=== PATIENT | female | born 1980 | race Caucasian/White ===

== ENCOUNTER 2017-02-26 21:59 | Emergency (ER) | payer OTHER ==
[~2017-02-26] VITALS: Ht 160 cm; Wt 97.5 kg
[~2017-02-26 21:59] MED LIST: ABILIFY 2 MG2 M1 PO; ABILIFY 5 MG TAB5 M1 PO; ACETAMINOPHEN-1 EAC1 PO; ADVAIR 500-501 EACH INH; AMBIEN 10 MG TA10 MG PO; AMBIEN 5 MG TABL5 M1 PO; AMOXICILLIN 50500 M1 PO; AMOXICILLIN875 MG PO; APAP/CODEINE ELI5 M1 OR; APAP500; APAP500 PO; BACTRIM DS TAB1 EACH PO; BENTYL 20 MG TA20 M1 PO; BENTYL10 MG PO; CALCIUM 500+D1 EAC2 PO; CARAFATE 1 GM TA1 G1 PO; CELEBREX 200 M200 MG PO; CELEBREX50 MG PO; CIPROFLOXACIN500 M1 PO; CIPROFLOXACIN500 M3 PO; CITRATE OF MAG296 ML PO; CLARINEX5 MG PO; CLEOCIN HCL150 MG PO; CLEOCIN HCL300 MG PO; COLACE 100 MG100 MG PO; COLACE100 MG PO; CYCLOBENZAPRINE5 MG PO; CYMBALTA20 MG; CYMBALTA30 MG PO; DILAUDID2 M1 PO; ESTRACE2 M3 PO; ESTRACE2 MG PO; ESTRADIOL 2 MG GT; FLAGYL500 MG PO; FLEXERIL PO; GLUCOPHAGE500 MG PO; HTN MED PO; HYDROCODON-ACE1 EAC5 PO; HYDROCODON-ACE1 EAC8 PO; HYDROCODONE-AP1 EAC6 PO; LOMOTIL TABLET1 EACH PO; MEDROL DOSPAK21 TAB PO; MEDROLDOSEPACK PO; METFORMIN HCL500 M2 PO; MS CONTIN 30 MG30 M1; MULTI VITAMIN1 EACH PO; MULTIVIT &0.5 MG/1 M; NAPROSYN500 MG PO; NEURONTIN 300M300 M2 PO; NORCO 5-325 TA1 EACH PO; NORFLEX100 MG PO; NYSTATIN 100,0015 G1; NYSTATIN-TRIAMC15 G1 TP; NYSTATIN15 GM TP; OMEPRAZOLE 20 M20 M1 PO; OXYCONTIN10 M1 PO; PENICILLIN V P500 MG PO; PENICILLIN VK500 MG PO; PEPCID40 MG PO; PERCOCET 10-321 EACH PO; PERCOCET 10-651 EACH PO; PERCOCET 5-3251 EACH PO; PERCOCET 7.5-31 EACH PO; PERIDEX 0.12%473 M1 SSP; PHENERGAN 25 MG25 M1 PO; PRAZOSIN 1 MG CA1 M1 PO; PREDNISOLONE PO; PREMARIN; PRILOSEC40 MG PO; PROAIR HFA8.5 GM IH; PROCTOFOAM-HC F10 G1 RE; PROTONIX40 M2 PO; PROZOSIN PO; RECTICARE30 GM; REGLAN 10 MG TA10 MG PO; RINGWORM14.2 GM TP; VALIUM2 MG; VALIUM5 MG PO; VICODIN 5-5001 EACH PO; VITAMIN E100 UNIT PO; XANAX 0.5 MG0.5 M1; XANAX 0.5 MG0.5 M1 PO; ZANAFLEX4 MG PO; ZOFRAN ODT4 MG PO; ZOLOFT100 MG PO; ZOLPIDEM TART12.5 M1 PO; ZPAK PO; [UNRECOGNIZED DRUG - OTHER] GT; [UNRECOGNIZED DRUG - REMARK] PO
[2017-02-26] MEDS ORDERED: ROSUVASTATIN CA40 MG PO (22:06)
[2017-02-26] MEDS ORDERED: DOXYCYCLINE HY100 M3 PO (22:06)
[2017-02-26] MEDS ORDERED: HYDROCODONE-AP1 EAC6 PO (22:06)
[2017-02-26] MEDS ORDERED: TOPROL XL25 MG PO (22:06)
[2017-02-26] MEDS ORDERED: ROBAXIN 750 MG750 M1 PO (23:44)
[2017-02-27 00:31] VITALS: BP 145/71
== END 2017-02-27 00:35 | disposition home or self-care (01) ==
LOC: ER 21:59
DX: M25.552 Pain in left hip (principal); I10 Essential (primary) hypertension; E11.9 Type 2 diabetes mellitus without complications; F17.210 Nicotine dependence, cigarettes, uncomplicated; Z90.710 Acquired absence of both cervix and uterus; Z90.49 Acquired absence of other specified parts of digestive tract; Z98.890 Other specified postprocedural states; Z88.1 Allergy status to other antibiotic agents; Z91.041 Radiographic dye allergy status; Z88.5 Allergy status to narcotic agent; Z88.8 Allergy status to other drugs, medicaments and biological substances; Z91.018 Allergy to other foods; Z91.09 Other allergy status, other than to drugs and biological substances

== ENCOUNTER 2018-10-30 14:29 | Emergency (ER) | payer OTHER ==
[~2018-10-30] VITALS: Ht 157.5 cm; Wt 90.7 kg
[~2018-10-30 14:29] MED LIST changes: +DOXYCYCLINE HY100 M3 PO; +ESTRADIOL 1 MG T1 M1 PO; +METFORMIN HCL500 MG PO; +PENICILLIN VK500 M1 PO; +PRILOSEC 20 MG20 MG PO; +ROBAXIN 750 MG750 M1 PO; +ROSUVASTATIN CA40 MG PO; +TOPROL XL25 MG PO; +TRAMADOL 50 MG50 MG PO
[2018-10-30] MEDS ORDERED: FLEXERIL PO (14:43)
[2018-10-30] MEDS ORDERED: NORCO 5-325 TA1 EACH PO (15:36)
[2018-10-30 15:41] VITALS: BP 141/90
== END 2018-10-30 15:42 | disposition home or self-care (01) ==
LOC: ER 14:29
DX: S30.0XXA Contusion of lower back and pelvis, initial encounter (principal); F17.210 Nicotine dependence, cigarettes, uncomplicated; I10 Essential (primary) hypertension; E11.9 Type 2 diabetes mellitus without complications; K21.9 Gastro-esophageal reflux disease without esophagitis; Z88.1 Allergy status to other antibiotic agents; Z88.8 Allergy status to other drugs, medicaments and biological substances; Z91.018 Allergy to other foods; Z91.041 Radiographic dye allergy status; Z88.6 Allergy status to analgesic agent; Z91.048 Other nonmedicinal substance allergy status; Z90.49 Acquired absence of other specified parts of digestive tract; Z90.710 Acquired absence of both cervix and uterus; Z98.890 Other specified postprocedural states; W01.0XXA Fall on same level from slipping, tripping and stumbling without subsequent striking against object, initial encounter; Y92.89 Other specified places as the place of occurrence of the external cause; Y93.89 Activity, other specified; Y99.8 Other external cause status

== ENCOUNTER 2018-12-19 22:02 | Emergency (ER) | payer OTHER ==
[~2018-12-19] VITALS: Ht 157.5 cm; Wt 93.0 kg
[2018-12-19] MEDS ORDERED: NORCO 5-325 TA1 EACH PO (22:48)
[2018-12-19] MEDS ORDERED: CLEOCIN HCL150 MG PO (22:48)
[2018-12-19 23:31] VITALS: BP 133/89
== END 2018-12-19 23:32 | disposition home or self-care (01) ==
LOC: ER 22:02
DX: K08.89 Other specified disorders of teeth and supporting structures (principal); E11.9 Type 2 diabetes mellitus without complications; I10 Essential (primary) hypertension; Z90.49 Acquired absence of other specified parts of digestive tract; Z90.710 Acquired absence of both cervix and uterus; F17.210 Nicotine dependence, cigarettes, uncomplicated; Z88.1 Allergy status to other antibiotic agents; Z88.6 Allergy status to analgesic agent; Z88.5 Allergy status to narcotic agent; Z88.8 Allergy status to other drugs, medicaments and biological substances; Z91.041 Radiographic dye allergy status

== ENCOUNTER 2019-02-05 06:39 | Emergency (ER) | payer OTHER ==
[~2019-02-05] VITALS: Ht 157.5 cm; Wt 95.3 kg
[2019-02-05] MEDS ORDERED: CLEOCIN HCL150 MG PO (07:18)
[2019-02-05 07:30] VITALS: BP 116/63
== END 2019-02-05 07:42 | disposition home or self-care (01) ==
LOC: ER 06:39
DX: K08.89 Other specified disorders of teeth and supporting structures (principal); E11.9 Type 2 diabetes mellitus without complications; I10 Essential (primary) hypertension; F17.210 Nicotine dependence, cigarettes, uncomplicated; Z90.49 Acquired absence of other specified parts of digestive tract; Z90.710 Acquired absence of both cervix and uterus; Z88.1 Allergy status to other antibiotic agents; Z91.041 Radiographic dye allergy status; Z88.6 Allergy status to analgesic agent; Z88.8 Allergy status to other drugs, medicaments and biological substances; Z91.018 Allergy to other foods

== ENCOUNTER 2019-02-15 19:33 | Emergency (ER) | payer OTHER ==
[~2019-02-15] VITALS: Ht 157.5 cm; Wt 93.0 kg
[2019-02-15 21:07] LABS: ABSOLUTE NEUTROPHILS 5.4 thou/uL (1.4-8.2); BASOPHILS 0.9 % (0.0-2.0); EOSINOPHILS 1.1 % (0.0-3.0); HEMATOCRIT 39.7 % (37.0-47.0); HEMOGLOBIN 13.2 gm/dL (12.0-15.0); LYMPHOCYTES 38.3 % (24.0-44.0); MCH 28.8 pg (26.0-34.0); MCHC 33.3 g/dL (28.0-37.0); MCV 86.7 fL (80.0-100.0); MONOCYTES 6.7 % (1.0-8.0); PLATELET COUNT 358 thou/uL (150-400); RBC 4.58 mil/uL (4.20-5.00); RDW 14.9 % (10.5-14.5); WBC 10.2 thou/uL (4.0-11.0)
[2019-02-15 21:12] LABS: ANION GAP 7 mmol/L (7-16); BUN 15 mg/dL (7-18); CALCIUM 9.7 mg/dL (8.5-10.1); CHLORIDE 106 mmol/L (98-107); CO2 30 mmol/L (21-32); CREATININE 0.9 mg/dL (0.6-1.0); GLUCOSE 99 mg/dL (74-106); POTASSIUM 3.6 mmol/L (3.5-5.1); SODIUM 143 mmol/L (136-145)
[2019-02-15 21:20] LABS: ALBUMIN 3.7 g/dL (3.4-5.0); DIRECT BILIRUBIN < 0.1 mg/dL (<0.1-0.3); LIPASE 209 U/L (73-393); SGOT 23 U/L (15-37); SGPT 23 U/L (30-65); TOTAL BILIRUBIN 0.2 mg/dL (<0.1-1.0); TOTAL PROTEIN 7.5 g/dL (6.4-8.2)
[2019-02-15] MEDS ORDERED: ZOFRAN ODT4 MG PO (23:33)
[2019-02-15] MEDS ORDERED: TORADOL 10 MG T10 MG PO (23:33)
[2019-02-15] MEDS ORDERED: BENTYL 20 MG TA20 M1 PO (23:33)
[2019-02-15 23:40] VITALS: BP 124/75
== END 2019-02-16 00:06 | disposition home or self-care (01) ==
LOC: ER 19:33
PROVIDERS: Emergency Medicine
DX: R10.30 Lower abdominal pain, unspecified (principal); R11.2 Nausea with vomiting, unspecified; F17.210 Nicotine dependence, cigarettes, uncomplicated; E11.9 Type 2 diabetes mellitus without complications; I10 Essential (primary) hypertension; Z88.1 Allergy status to other antibiotic agents; Z88.8 Allergy status to other drugs, medicaments and biological substances; Z91.041 Radiographic dye allergy status; Z88.6 Allergy status to analgesic agent; Z91.018 Allergy to other foods; Z90.49 Acquired absence of other specified parts of digestive tract; Z90.710 Acquired absence of both cervix and uterus

== ENCOUNTER 2019-03-14 10:41 | Emergency (ER) | payer OTHER ==
[~2019-03-14] VITALS: Ht 157.5 cm; Wt 93.0 kg
[~2019-03-14 10:41] MED LIST changes: +TORADOL 10 MG T10 MG PO
[2019-03-14 10:48] VITALS: BP 159/100
[2019-03-14] MEDS ORDERED: TORADOL 10 MG T10 MG PO (11:34)
[2019-03-14] MEDS ORDERED: NORCO 5-325 TA1 EACH PO (11:51)
== END 2019-03-14 11:42 | disposition home or self-care (01) ==
LOC: ER 10:41
DX: S46.911A Strain of unspecified muscle, fascia and tendon at shoulder and upper arm level, right arm, initial encounter (principal); S60.211A Contusion of right wrist, initial encounter; E11.9 Type 2 diabetes mellitus without complications; I10 Essential (primary) hypertension; F17.210 Nicotine dependence, cigarettes, uncomplicated; Z90.49 Acquired absence of other specified parts of digestive tract; Z90.710 Acquired absence of both cervix and uterus; Z88.1 Allergy status to other antibiotic agents; Z88.5 Allergy status to narcotic agent; Z88.6 Allergy status to analgesic agent; Z88.8 Allergy status to other drugs, medicaments and biological substances; Z91.041 Radiographic dye allergy status; W01.198A Fall on same level from slipping, tripping and stumbling with subsequent striking against other object, initial encounter; Y93.89 Activity, other specified; Y92.89 Other specified places as the place of occurrence of the external cause; Y99.8 Other external cause status

== ENCOUNTER 2019-04-19 16:45 | Emergency (ER) | payer OTHER ==
[~2019-04-19] VITALS: Ht 157.5 cm; Wt 88.5 kg
[2019-04-19] MEDS ORDERED: MOBIC15 MG PO (17:48)
[2019-04-19 18:39] VITALS: BP 140/81
== END 2019-04-19 18:39 | disposition home or self-care (01) ==
LOC: ER 16:45
DX: S93.401A Sprain of unspecified ligament of right ankle, initial encounter (principal); E11.9 Type 2 diabetes mellitus without complications; I10 Essential (primary) hypertension; F17.210 Nicotine dependence, cigarettes, uncomplicated; Z90.49 Acquired absence of other specified parts of digestive tract; Z90.710 Acquired absence of both cervix and uterus; Z88.1 Allergy status to other antibiotic agents; Z88.6 Allergy status to analgesic agent; Z88.5 Allergy status to narcotic agent; Z88.8 Allergy status to other drugs, medicaments and biological substances; W18.30XA Fall on same level, unspecified, initial encounter; Y93.89 Activity, other specified; Y92.89 Other specified places as the place of occurrence of the external cause; Y99.8 Other external cause status

== ENCOUNTER 2019-06-26 21:35 | Emergency (ER) | payer OTHER ==
[~2019-06-26] VITALS: Ht 157.5 cm; Wt 88.5 kg
[~2019-06-26 21:35] MED LIST changes: +MOBIC15 MG PO
[2019-06-26] MEDS ORDERED: CLEOCIN HCL150 MG PO (21:39)
[2019-06-26 21:50] VITALS: BP 153/101
[2019-06-26] MEDS ORDERED: NORCO 7.5-3251 EACH PO (22:18)
[2019-06-26] MEDS ORDERED: AMOXICILLIN 50500 M1 PO (22:18)
[2019-06-26] MEDS ORDERED: NICOTINE TRANSD21 M1 TRANSDERM (22:18)
== END 2019-06-26 22:24 | disposition home or self-care (01) ==
LOC: ER 21:35
DX: K08.89 Other specified disorders of teeth and supporting structures (principal); H92.01 Otalgia, right ear; E11.9 Type 2 diabetes mellitus without complications; I10 Essential (primary) hypertension; F17.210 Nicotine dependence, cigarettes, uncomplicated; Z90.49 Acquired absence of other specified parts of digestive tract; Z90.710 Acquired absence of both cervix and uterus; Z88.1 Allergy status to other antibiotic agents; Z91.018 Allergy to other foods; Z91.041 Radiographic dye allergy status; Z88.6 Allergy status to analgesic agent; Z88.8 Allergy status to other drugs, medicaments and biological substances; Z91.048 Other nonmedicinal substance allergy status

== ENCOUNTER 2019-09-09 15:13 | Emergency (ER) | payer OTHER ==
[~2019-09-09] VITALS: Ht 160 cm; Wt 90.3 kg
[~2019-09-09 15:13] MED LIST changes: +NICOTINE TRANSD21 M1 TRANSDERM; +NORCO 7.5-3251 EACH PO
[2019-09-09 15:39] LABS: URINE BLOOD NEGATIVE (Negative); URINE CLARITY CLEAR; URINE COLOR YELLOW; URINE GLUCOSE-RANDOM* NEGATIVE (Negative); URINE KETONES NEGATIVE (Negative); URINE LEUKOCYTES-REFLEX NEGATIVE (Negative); URINE NITRITE-REFLEX NEGATIVE (Negative); URINE PROTEIN (DIPSTICK) NEGATIVE (Negative); URINE SPECIFIC GRAVITY >= 1.030 (1.005-1.035); URINE UROBILINOGEN 0.2 E.U./dl (0.2-1.0)
[2019-09-09 15:42] LABS: ICTOTEST (BILI CONFIRMATORY) Negative (Negative); URINE BILIRUBIN NEGATIVE (Negative)
[2019-09-09 15:53] LABS: ABSOLUTE NEUTROPHILS 7.7 thou/uL (1.4-8.2); BASOPHILS 1.3 % (0.0-2.0); EOSINOPHILS 1.2 % (0.0-3.0); HEMATOCRIT 43.5 % (37.0-47.0); HEMOGLOBIN 14.6 gm/dL (12.0-15.0); LYMPHOCYTES 29.3 % (24.0-44.0); MCH 29.2 pg (26.0-34.0); MCHC 33.5 g/dL (28.0-37.0); MCV 87.2 fL (80.0-100.0); MONOCYTES 6.1 % (1.0-8.0); PLATELET COUNT 345 thou/uL (150-400); POLYS 62.1 % (36.0-66.0); RBC 4.99 mil/uL (4.20-5.00); RDW 14.1 % (10.5-14.5); WBC 12.3 thou/uL (4.0-11.0)
[2019-09-09 16:03] LABS: ANION GAP 11 mmol/L (7-16); BUN 12 mg/dL (7-18); CALCIUM 9.3 mg/dL (8.5-10.1); CHLORIDE 100 mmol/L (98-107); CO2 26 mmol/L (21-32); GLUCOSE 119 mg/dL (74-106); POTASSIUM 3.7 mmol/L (3.5-5.1); SODIUM 137 mmol/L (136-145)
[2019-09-09 16:12] LABS: TROPONIN-I <0.06 ng/mL (<0.06)
[2019-09-09 17:26] LABS: AMP/METHAMP Negative (Negative); BARBITURATES Negative (Negative); BENZODIAZEPINES Negative (Negative); COCAINE Negative (Negative); METHADONE POSITIVE (Negative); OPIATES Negative (Negative); PCP Negative (Negative)
[2019-09-09 18:19] VITALS: BP 158/80
--- NOTE | 2019-09-10 12:27 | EKG ---
[address] [place] [address] ELECTROCARDIOGRAM REPORT Name: AMAYA GARZA Room #: [facility]#: [id number] Admission: 09/09/19 Attend Phys: Discharge: 09/09/19 Date of : 84 Report #: [id number] THIS REPORT FOR: //name// [facility] ED Test Date: 2019-09-09 Test Time: 15:39:43 Pat Name: AMAYA GARZA Department: Room: Gender: F [employer]eng[employer]ving Printer: Naveed GUERRERO : 1980 Requested By: Anand Simental Order Number: [id number] MD: Geovani Alfonso Measurements Intervals Arrey Rate: 122 P: 25 [place]: 158 QRS: -1 QRSD: 80 T: 44 QT: 300 QTc: 428 Interpretive Statements Sinus tachycardia Poor R-wave progression Compared to ECG 05/18/2016 18:32:14 Sinus rhythm no longer present Electronically Signed On 09-10-2019 12:27:29 HELICOPTER PILOT by Geovani Alfonso [email or web address] <ELECTRONICALLY SIGNED> By: Geovani Alfonso MD 09/10/19 1227 1539 1539 Geovani Alfonso MD /[email or web address]
== END 2019-09-09 18:22 | disposition home or self-care (01) ==
LOC: ER 15:13
PROVIDERS: Emergency Medicine
DX: N64.4 Mastodynia (principal); I10 Essential (primary) hypertension; E11.9 Type 2 diabetes mellitus without complications; E66.9 Obesity, unspecified; F17.210 Nicotine dependence, cigarettes, uncomplicated; Z68.35 Body mass index [BMI] 35.0-35.9, adult; Z90.49 Acquired absence of other specified parts of digestive tract; Z90.710 Acquired absence of both cervix and uterus; Z91.018 Allergy to other foods; Z91.041 Radiographic dye allergy status; Z91.048 Other nonmedicinal substance allergy status; Z88.1 Allergy status to other antibiotic agents; Z88.6 Allergy status to analgesic agent; Z88.8 Allergy status to other drugs, medicaments and biological substances

== ENCOUNTER 2019-11-14 06:54 | Emergency (ER) | payer OTHER ==
[~2019-11-14] VITALS: Ht 157.5 cm; Wt 83.9 kg
[2019-11-14] MEDS ORDERED: NEURONTIN 300300 M1 PO (07:00)
[2019-11-14] MEDS ORDERED: OMEPRAZOLE 20 M20 M1 PO (07:00)
[2019-11-14] MEDS ORDERED: METFORMIN HCL500 M1 PO (07:00)
[2019-11-14] MEDS ORDERED: CYCLOBENZAPRINE10 MG PO (07:01)
[2019-11-14] MEDS ORDERED: DULOXETINE HCL60 MG PO (07:01)
[2019-11-14] MEDS ORDERED: TORADOL 10 MG T10 MG PO ×2 (08:35→09:13)
[2019-11-14] MEDS ORDERED: NORFLEX100 MG PO ×2 (08:35→09:13)
[2019-11-14] MEDS ORDERED: NORCO 5-325 TA1 EAC1 PO ×3 (08:35→09:14)
[2019-11-14 08:41] VITALS: BP 109/57
== END 2019-11-14 09:30 | disposition home or self-care (01) ==
LOC: ER 06:54
DX: S86.812A Strain of other muscle(s) and tendon(s) at lower leg level, left leg, initial encounter (principal); S50.12XA Contusion of left forearm, initial encounter; S40.012A Contusion of left shoulder, initial encounter; I10 Essential (primary) hypertension; E11.9 Type 2 diabetes mellitus without complications; F17.210 Nicotine dependence, cigarettes, uncomplicated; Z90.49 Acquired absence of other specified parts of digestive tract; Z90.710 Acquired absence of both cervix and uterus; Z91.018 Allergy to other foods; Z91.041 Radiographic dye allergy status; Z91.048 Other nonmedicinal substance allergy status; Z88.1 Allergy status to other antibiotic agents; Z88.6 Allergy status to analgesic agent; Z88.8 Allergy status to other drugs, medicaments and biological substances; W01.0XXA Fall on same level from slipping, tripping and stumbling without subsequent striking against object, initial encounter; Y93.89 Activity, other specified; Y92.89 Other specified places as the place of occurrence of the external cause; Y99.8 Other external cause status

== ENCOUNTER 2020-01-15 21:37 | Emergency (ER) | payer OTHER ==
[~2020-01-15] VITALS: Ht 157.5 cm; Wt 97.5 kg
[~2020-01-15 21:37] MED LIST changes: +CYCLOBENZAPRINE10 MG PO; +DULOXETINE HCL60 MG PO; +METFORMIN HCL500 M1 PO; +NEURONTIN 300300 M1 PO; +NORCO 5-325 TA1 EAC1 PO
[2020-01-15] MEDS ORDERED: PREDNISONE 20 M20 M1 PO (22:42)
[2020-01-15] MEDS ORDERED: PROAIR HFA8.5 GM INH (22:42)
[2020-01-15] MEDS ORDERED: PROMETH-CODEIN 65 ML PO (22:42)
[2020-01-15 22:55] VITALS: BP 111/67
== END 2020-01-15 22:50 | disposition home or self-care (01) ==
LOC: ER 21:37
DX: J40 Bronchitis, not specified as acute or chronic (principal); E11.9 Type 2 diabetes mellitus without complications; I10 Essential (primary) hypertension; F17.210 Nicotine dependence, cigarettes, uncomplicated; Z79.899 Other long term (current) drug therapy; Z88.1 Allergy status to other antibiotic agents; Z88.6 Allergy status to analgesic agent; Z88.8 Allergy status to other drugs, medicaments and biological substances

== ENCOUNTER 2020-03-19 05:35 | Emergency (ER) | payer OTHER ==
[~2020-03-19] VITALS: Ht 157.5 cm; Wt 90.3 kg
[~2020-03-19 05:35] MED LIST changes: +PREDNISONE 20 M20 M1 PO; +PROAIR HFA8.5 GM INH; +PROMETH-CODEIN 65 ML PO
[2020-03-19] MEDS ORDERED: BENTYL 10 MG CA10 M1 PO (06:11)
[2020-03-19] MEDS ORDERED: NORCO 10-325 T1 EACH PO (06:12)
[2020-03-19 06:27] VITALS: BP 133/69
[2020-03-19] MEDS ORDERED: LIDOCAINE VISC100 ML TOP (06:45)
[2020-03-19] MEDS ORDERED: AUGMENTIN 875-1 EACH PO (06:45)
[2020-03-19] MEDS ORDERED: CLEOCIN HCL150 MG PO (06:45)
[2020-03-19] MEDS ORDERED: NORCO 5-325 TA1 EAC1 PO (06:46)
== END 2020-03-19 07:02 | disposition home or self-care (01) ==
LOC: ER 05:35
DX: N75.0 Cyst of Bartholin's gland (principal); E11.9 Type 2 diabetes mellitus without complications; I10 Essential (primary) hypertension; F17.210 Nicotine dependence, cigarettes, uncomplicated; Z79.899 Other long term (current) drug therapy; Z88.1 Allergy status to other antibiotic agents; Z88.8 Allergy status to other drugs, medicaments and biological substances; Z91.041 Radiographic dye allergy status; Z91.018 Allergy to other foods; Z90.710 Acquired absence of both cervix and uterus; Z90.49 Acquired absence of other specified parts of digestive tract; Z98.890 Other specified postprocedural states

== ENCOUNTER 2020-04-17 17:32 | Emergency (ER) | payer OTHER ==
[~2020-04-17] VITALS: Ht 157.5 cm; Wt 90.3 kg
[~2020-04-17 17:32] MED LIST changes: +AUGMENTIN 875-1 EACH PO; +BENTYL 10 MG CA10 M1 PO; +LIDOCAINE VISC100 ML TOP; +NORCO 10-325 T1 EACH PO
[2020-04-17 17:42] VITALS: BP 147/90
[2020-04-17] MEDS ORDERED: NORCO 5-325 TA1 EAC1 PO (18:10)
== END 2020-04-17 18:26 | disposition home or self-care (01) ==
LOC: ER 17:32
DX: M25.532 Pain in left wrist (principal); R51 Headache; E11.9 Type 2 diabetes mellitus without complications; I10 Essential (primary) hypertension; F17.210 Nicotine dependence, cigarettes, uncomplicated; Z90.49 Acquired absence of other specified parts of digestive tract; Z90.710 Acquired absence of both cervix and uterus; Z98.890 Other specified postprocedural states; Z79.899 Other long term (current) drug therapy; Z88.1 Allergy status to other antibiotic agents; Z91.018 Allergy to other foods; Z91.041 Radiographic dye allergy status; Z88.8 Allergy status to other drugs, medicaments and biological substances

== ENCOUNTER 2020-06-01 14:34 | Emergency (ER) | payer OTHER ==
[~2020-06-01] VITALS: Ht 172.7 cm; Wt 88.5 kg
[2020-06-01] MEDS ORDERED: TORADOL 10 MG T10 MG PO (16:43)
[2020-06-01 17:00] VITALS: BP 126/82
== END 2020-06-01 17:08 | disposition home or self-care (01) ==
LOC: ER 14:34
DX: M54.42 Lumbago with sciatica, left side (principal); E11.9 Type 2 diabetes mellitus without complications; I10 Essential (primary) hypertension; F17.210 Nicotine dependence, cigarettes, uncomplicated; Z90.49 Acquired absence of other specified parts of digestive tract; Z90.711 Acquired absence of uterus with remaining cervical stump; Z79.899 Other long term (current) drug therapy; Z88.1 Allergy status to other antibiotic agents; Z88.8 Allergy status to other drugs, medicaments and biological substances; Z91.041 Radiographic dye allergy status; Z91.048 Other nonmedicinal substance allergy status

== ENCOUNTER 2021-02-06 18:55 | Emergency (ER) | payer OTHER ==
[~2021-02-06] VITALS: Ht 157.5 cm; Wt 90.7 kg
[2021-02-06] MEDS ORDERED: KETOCONAZOLE15 GM TOP (20:04)
[2021-02-06] MEDS ORDERED: NORCO5 PO (20:15)
[2021-02-06 20:21] VITALS: BP 129/95
== END 2021-02-06 20:22 | disposition home or self-care (01) ==
LOC: ER 18:55
DX: L30.4 Erythema intertrigo (principal); E11.9 Type 2 diabetes mellitus without complications; I10 Essential (primary) hypertension; F17.210 Nicotine dependence, cigarettes, uncomplicated; Z90.710 Acquired absence of both cervix and uterus; Z90.49 Acquired absence of other specified parts of digestive tract; Z98.890 Other specified postprocedural states; Z88.1 Allergy status to other antibiotic agents; Z91.041 Radiographic dye allergy status; Z88.6 Allergy status to analgesic agent; Z91.048 Other nonmedicinal substance allergy status; Z88.8 Allergy status to other drugs, medicaments and biological substances

== ENCOUNTER 2021-04-29 08:16 | Emergency (ER) | payer OTHER ==
[~2021-04-29] VITALS: Ht 157.5 cm; Wt 85.7 kg
[~2021-04-29 08:16] MED LIST changes: +KETOCONAZOLE15 GM TOP; +NORCO5 PO
[2021-04-29 08:17] VITALS: BP 145/86
== END 2021-04-29 09:40 | disposition home or self-care (01) ==
LOC: ER 08:16
DX: S89.81XD Other specified injuries of right lower leg, subsequent encounter (principal); F17.210 Nicotine dependence, cigarettes, uncomplicated; X50.1XXA Overexertion from prolonged static or awkward postures, initial encounter; Y93.89 Activity, other specified; Y92.89 Other specified places as the place of occurrence of the external cause; Y99.8 Other external cause status; I10 Essential (primary) hypertension; E11.9 Type 2 diabetes mellitus without complications; Z88.6 Allergy status to analgesic agent; Z91.041 Radiographic dye allergy status; Z88.8 Allergy status to other drugs, medicaments and biological substances; Z90.49 Acquired absence of other specified parts of digestive tract; Z90.710 Acquired absence of both cervix and uterus; Z88.1 Allergy status to other antibiotic agents

== ENCOUNTER 2021-05-29 04:30 | Emergency (ER) | payer OTHER ==
[~2021-05-29] VITALS: Ht 157.5 cm; Wt 85.7 kg
[2021-05-29 04:35] VITALS: BP 139/92
[2021-05-29] MEDS ORDERED: NORCO5 PO (17:12)
== END 2021-05-29 05:26 | disposition home or self-care (01) ==
LOC: ER 04:30
DX: S63.592A Other specified sprain of left wrist, initial encounter (principal); E11.9 Type 2 diabetes mellitus without complications; I10 Essential (primary) hypertension; F17.210 Nicotine dependence, cigarettes, uncomplicated; Z90.49 Acquired absence of other specified parts of digestive tract; Z90.710 Acquired absence of both cervix and uterus; Z79.891 Long term (current) use of opiate analgesic; Z88.8 Allergy status to other drugs, medicaments and biological substances; Z88.1 Allergy status to other antibiotic agents; Z91.041 Radiographic dye allergy status; Z91.02 Food additives allergy status; Z91.048 Other nonmedicinal substance allergy status; W18.39XA Other fall on same level, initial encounter; Y93.89 Activity, other specified; Y92.89 Other specified places as the place of occurrence of the external cause; Y99.8 Other external cause status

== ENCOUNTER 2021-05-29 16:22 | Emergency (ER) | payer OTHER ==
[~2021-05-29] VITALS: Ht 157.5 cm; Wt 88.5 kg
[2021-05-29 16:33] VITALS: BP 161/106
[2021-05-29] MEDS ORDERED: NORCO5 PO (17:12)
== END 2021-05-29 17:13 | disposition home or self-care (01) ==
LOC: ER 16:22
DX: M25.532 Pain in left wrist (principal); E11.9 Type 2 diabetes mellitus without complications; I10 Essential (primary) hypertension; F17.210 Nicotine dependence, cigarettes, uncomplicated; Z90.49 Acquired absence of other specified parts of digestive tract; Z90.710 Acquired absence of both cervix and uterus; Z88.6 Allergy status to analgesic agent; Z88.1 Allergy status to other antibiotic agents; Z91.02 Food additives allergy status